=== PATIENT | male | born 1995 | race Caucasian/White ===

== ENCOUNTER 2017-06-02 07:40 | Emergency (ER) | payer SELFPAY ==
[~2017-06-02] VITALS: Ht 170.2 cm; Wt 62.0 kg
[2017-06-02] MEDS ORDERED: NALOXONE (0.4 MG/ML) INJ IV STA (07:43)
[2017-06-02 07:52] VITALS: Ht 170.2 cm; Wt 62.0 kg
[2017-06-02] MEDS ORDERED: LACTATED RINGER'S 1,000 ML IV ONE (08:00)
--- NOTE | 2017-06-02 08:00 | ERD ---
ER Documentation Chief Complaint Chief Complaint BIB RA FOUND SLEEPING AT [employer]. PT RESPONDS TO PAIN. PIN POINT PUPILS HPI This is a 22-year-old male who presents via EMS. It was reported that the patient was drunk at a local [employer]'s. The patient was responding to pain but nonconversant. There is no report of fall or trauma. Upon arrival the patient is responsive to sternal rub but not opening his eyes. He appears to have pinpoint pupils. The patient is slightly hypotensive in the 80s. He was emergently placed in a formal room. Remainder of HPI is very limited. The patient does not speaking to us. ROS Patient intoxicated Medications Home Meds Unable to Obtain Active Prescriptions or Reported Meds Allergies Allergies: Coded Allergies: Unknown: Unable to obtain (Unverified , 06/02/17) PMhx/Soc Medical and Surgical Hx: Unable to obtain FmHx Patient intoxicated Physical Exam Vitals Vital Signs Date Time Temp Pulse Resp B/P Pulse Ox O2 Delivery O2 Flow Rate FiO2 06/02/17 14:24 61 18 115/72 100 Room Air 06/02/17 13:52 97.4 53 18 84/59 100 Room Air 06/02/17 12:11 57 16 85/51 99 Room Air 06/02/17 08:05 97.4 70 16 91/50 99 Room Air 06/02/17 07:52 94.5 66 14 85/40 99 Physical Exam General: Disheveled, moving all 4 extremities, responsive to painful stimuli and noxious stimuli Head: Normocephalic, atraumatic. Eyes: Pupils are pinpoint ENT: Moist mucous membranes Neck: Supple, no lymphadenopathy Respiratory: Lungs clear bilaterally, no distress Cardiovascular: RRR, no murmurs, rubs, or gallops Abdominal: Soft, non-tender, non-distended, no peritoneal signs : Deferred MSK: No edema, no unilateral swelling, 5/5 strength Neurologic: moving all extremities with good strength, not spontaneously opening eyes Skin: Track velazquez to bilateral antecubital fossa Psych: Unable to assess Result Diagram: 06/02/1795406/02/17954 Results 24 hrs Laboratory Tests Test 06/02/17 09:50 06/02/17 09:55 Bedside Glucose 87mg/dL White Blood Count 7.510^3/ul Red Blood Count 4.6910^6/ul Hemoglobin 14.1g/dl Hematocrit 40.5% Mean Corpuscular Volume 86.4fl Mean Corpuscular Hemoglobin 30.1pg Mean Corpuscular Hemoglobin Concent 34.8g/dl Red Cell Distribution Width 13.2% Platelet Count 26929^3/UL Mean Platelet Volume 9.8fl Neutrophils % 64.8% Lymphocytes % 22.8% Monocytes % 7.5% Eosinophils % 4.3% Basophils % 0.3% Nucleated Red Blood Cells % 0.0/100WBC Neutrophils # 4.810^3/ul Lymphocytes # 1.710^3/ul Monocytes # 0.610^3/ul Eosinophils # 0.310^3/ul Basophils # 0.010^3/ul Nucleated Red Blood Cells # 0.010^3/ul Sodium Level 143mmol/L Potassium Level 3.6mmol/L Chloride Level 105mmol/L Carbon Dioxide Level 26mmol/L Anion Gap 16 Blood Urea Nitrogen 13mg/dl Creatinine 0.63mg/dl Glucose Level 91mg/dl Calcium Level 8.7mg/dl Total Bilirubin 0.5mg/dl Direct Bilirubin 0.00mg/dl Indirect Bilirubin 0.5mg/dl Aspartate Amino Transf (AST/SGOT) 25IU/L Alanine Aminotransferase (ALT/SGPT) 32IU/L Alkaline Phosphatase 111IU/L Total Protein 6.5g/dl Albumin 3.9g/dl Globulin 2.60g/dl Albumin/Globulin Ratio 1.50 Ethyl Alcohol Level < 10.0mg/dl Current Medications Medications (Trade) Dose Ordered Sig/Edgar Route PRN Reason Start Time Stop Time Status Last Admin Dose Admin Naloxone HCl 0.4 mg 0.4 mg ONCE STAT IV 06/02/17 07:43 06/02/17 07:45 DC 06/02/17 07:52 Lactated Ringer's 1,000 ml @ 1,000 mls/hr Q1H ONCE IV 06/02/17 08:00 06/02/17 08:59 DC 06/02/17 08:00 Sodium Chloride 1,000 ml @ 1,000 mls/hr Q1H STAT IV 06/02/17 13:20 06/02/17 14:19 DC 06/02/17 13:47 Sodium Chloride (NS) 1,000 ml @ 1,000 mls/hr Q1H STAT IV 06/02/17 13:20 06/02/17 14:19 DC 06/02/17 13:48 Procedures/MDM EKG, MONITORS, & DIAGNOSTIC IMAGING: EKG: I reviewed and interpreted a 12-lead EKG. Rhythm: Normal sinus rhythm Ectopy: None Intervals: No abnormalities ST segments: No elevations or depressions T waves: No contiguous inversions LAB INTERPRETATION: No significant leukocytosis. Negative alcohol. MEDICAL DECISION MAKING: Upon arrival the patient is only responsive to painful and noxious stimuli. The patient is protecting his airway and moving all 4 extremities however is slightly hypotensive. Given the combination of altered mental status and hypotension I am very concerned for acute opiate overdose. The patient has pinpoint pupils. He was given 0.4 mg of Narcan. The patient was also written for IV fluids. There is no sign of sepsis or intracranial hemorrhage. He has a benign abdominal exam. Very low clinical concern for alternative organic pathology. This is likely a toxicologic process. ER COURSE: The patient was given 0.4 mg of Narcan. The patient has improved responsiveness and is now slightly agitated. I do not believe he requires further dosing as this will possibly potentiate a seizure or aggressive behavior. The patient is protecting his airway and does not require intubation or further intervention at this point. Close observation is appropriate. I do not believe he needs a CT of the brain given no evidence of trauma and better alternative diagnosis. During the patient's ER course he was extremely uncooperative with blood draw. The patient was more alert and occasionally conversing but appear to be somewhat behavioral. He continued to thrash about. Based on my conversation with the nursing team the patient's blood pressure has improved. Therefore I do not believe he requires further fluid intervention. He self discontinued his first IV. I believe that providing the patient with sedation medication carries more risk than benefit. Additionally, given the patient's response to Narcan I believe that his symptoms are possibly related to polysubstance abuse and opiate overdose. The patient is protecting his airway and does not require intubation. I do not believe at this point that the risk of holding the patient down to providing him with sedation medication to obtain blood draw our second IV would be of any benefit. I will continue to closely observe the patient and as long as the patient's mental status is improving he does not require intervention. At 2:25 PM update. The patient's blood pressure continued to trend up and down. The patient was written for 2 L of saline. his mental status is improving dramatically and the patient is more conversive but uncooperative. The patient still requires some time for metabolization. The patient's blood pressure has since responded into the 110s. I do not believe this is consistent with sepsis I believe that hypotension is related to polysubstance abuse and dehydration and somnolence. The patient will be endorsed to the oncoming provider for reevaluation. once the patient is more appropriate, alert and ambulatory and able to navigate the community can be safely discharged. Observation Note: Indication: Polysubstance abuse Duration: Greater than 8 hours Family history: As described above The patient was observed with serial exams over the above timeframe. The patient continued to be well-appearing, and observation continued without complication. I kept the patient and/or family informed of laboratory and diagnostic imaging results throughout the emergency room course. DISPOSITION PLAN: Pending sobriety Departure Diagnosis: Primary Impression: Acute encephalopathy Additional Impressions: Dehydration Polysubstance abuse Condition: Stable DARIAN HDEZ MD Jun 02, 2017 08:00
[2017-06-02 10:14] LABS: BASOPHILS % 0.3 % (0.0-2.0); EOSINOPHILS # 0.3 10^3/ul (0.0-0.5); EOSINOPHILS % 4.3 % (0.0-7.0); HEMATOCRIT 40.5 % (42.0-52.0); HEMOGLOBIN 14.1 g/dl (14.0-18.0); LYMPHOCYTES # 1.7 10^3/ul (0.8-2.9); LYMPHOCYTES % 22.8 % (15.0-51.0); MEAN CORPUSCULAR HEMOGLOBIN 30.1 pg (29.0-33.0); MEAN CORPUSCULAR HGB CONC 34.8 g/dl (32.0-37.0); MEAN CORPUSCULAR VOLUME 86.4 fl (82.0-101.0); MEAN PLATELET VOLUME 9.8 fl (7.4-10.4); MONOCYTE # 0.6 10^3/ul (0.3-0.9); MONOCYTES % 7.5 % (0.0-11.0); NEUTROPHIL # 4.8 10^3/ul (1.6-7.5); NEUTROPHILS % 64.8 % (39.0-77.0); PLATELET COUNT 268 10^3/UL (140-415); RED BLOOD COUNT 4.69 10^6/ul (4.70-6.10); RED CELL DISTRIBUTION WIDTH 13.2 % (11.5-14.5); WHITE BLOOD COUNT 7.5 10^3/ul (4.8-10.8)
[2017-06-02 10:44] LABS: ALANINE AMINOTRANSFERASE 32 IU/L (13-69); ALBUMIN 3.9 g/dl (3.3-4.9); ALKALINE PHOSPHATASE 111 IU/L (42-121); ANION GAP 16 (8-16); ASPARTATE AMINO TRANSFERASE 25 IU/L (15-46); BILIRUBIN,INDIRECT 0.5 mg/dl (0-1.1); BILIRUBIN,TOTAL 0.5 mg/dl (0.2-1.3); BLOOD UREA NITROGEN 13 mg/dl (7-20); CALCIUM 8.7 mg/dl (8.4-10.2); CARBON DIOXIDE 26 mmol/L (21-31); CHLORIDE 105 mmol/L (97-110); CREATININE 0.63 mg/dl (0.61-1.24); GLUCOSE 91 mg/dl (70-220); POTASSIUM 3.6 mmol/L (3.5-5.1); SODIUM 143 mmol/L (135-144); TOTAL PROTEIN 6.5 g/dl (6.1-8.1)
[2017-06-02 10:45] LABS: ETHANOL < 10.0 mg/dl
[2017-06-02] MEDS ORDERED: SOD CHLORIDE 0.9% 1,000 ML IV STA ×2 (13:20)
[2017-06-02 17:02] VITALS: BP 115/62; PULSE 60; RESP 16; TEMP 97.4
== END 2017-06-02 18:34 | disposition home or self-care (01) ==
LOC: E/R 07:40
DX: G93.40 Encephalopathy, unspecified (principal); R40.2352 Coma scale, best motor response, localizes pain, at arrival to emergency department; E86.0 Dehydration; R40.2112 Coma scale, eyes open, never, at arrival to emergency department; R40.2212 Coma scale, best verbal response, none, at arrival to emergency department
CPT/HCPCS: 36415; 80053; 80306; 82962; 85025; 93005; 96374; 99284; J2310; J7030; J7120